=== PATIENT | male | born 1950 | race Caucasian/White ===

== ENCOUNTER → 2017-09-12 | Outpatient (CLI) | payer OTHER ==
[~2017-09-12] MED LIST: AMOXICILLIN 50500 MG PO; BAYER CHEWABLE81 MG PO; LOPRESSOR25 PO; MEDROLDOSEPACK PO; NORVASC10 MG PO; PROMETH-CODEIN 65 ML PO
[2017-09-12 07:03] LABS: CREATININE 0.8 mg/dL (0.6-1.3)
== END ==
LOC: M.LAB 09-08 07:00 → M.CT 09-08 08:00 → M.LAB 07:00
PROVIDERS: Psychiatry & Neurology Psychiatry
DX: K80.20 Calculus of gallbladder without cholecystitis without obstruction (principal); K86.2 Cyst of pancreas; K76.0 Fatty (change of) liver, not elsewhere classified; I77.811 Abdominal aortic ectasia; I70.0 Atherosclerosis of aorta; N28.1 Cyst of kidney, acquired

== ENCOUNTER 2020-12-25 08:10 | Emergency (ER) | payer MEDICARE ==
[~2020-12-25] VITALS: Ht 180.3 cm; Wt 77.1 kg
[2020-12-25] MEDS ORDERED: LIPITOR10 MG PO (08:27)
[2020-12-25] MEDS ORDERED: CEPHALEXIN500 MG PO (08:57)
[2020-12-25 09:24] VITALS: BP 144/107
== END 2020-12-25 09:25 | disposition home or self-care (01) ==
LOC: M.ERS 08:10
DX: S51.812A Laceration without foreign body of left forearm, initial encounter (principal); S71.112A Laceration without foreign body, left thigh, initial encounter; S81.012A Laceration without foreign body, left knee, initial encounter; S00.211A Abrasion of right eyelid and periocular area, initial encounter; I10 Essential (primary) hypertension; E78.5 Hyperlipidemia, unspecified; I48.91 Unspecified atrial fibrillation; Z90.49 Acquired absence of other specified parts of digestive tract; Z88.8 Allergy status to other drugs, medicaments and biological substances; W18.39XA Other fall on same level, initial encounter; Y93.89 Activity, other specified; Y92.89 Other specified places as the place of occurrence of the external cause; Y99.8 Other external cause status